=== PATIENT | female | born 1975 | race Caucasian/White ===

== ENCOUNTER 2018-03-25 04:24 | Observation (INO) | payer SELFPAY ==
[2018-03-25] MEDS ORDERED: Nitroglycerin 0.4 MG TAB (25 Tab Bottle) ONE (05:14)
[2018-03-25] MEDS ORDERED: Aspirin 325 MG TAB ONE (05:14)
[2018-03-25 05:44] LABS: CKMB 0.9 ng/mL (0-6.6); Troponin I Less than 0.010 ng/mL (< 0.028)
[2018-03-25 06:43] LABS: #Basophils 0.1 thou/uL (0.0-0.2); #Eosinphils 0.2 thou/uL (0.0-0.7); #Lymphocytes 1.9 thou/uL (1.20-3.40); #Monocytes 0.8 thou/uL (0.11-0.59); #Neutrophils 2.7 thou/uL (1.40-6.50); %Basophils 0.9 % (0.0-1.0); %Eosinophils 3.5 % (0.0-10.0); %Lymphocytes 33.8 % (21.0-51.0); %Monocytes 14.4 % (0.0-10.0); %Neutrophils 47.5 % (42.0-75.0); Hemoglobin 14.1 g/dL (12.0-16.0); Mean Corpuscular HGB CONC 34.4 g/dL (32.0-36.0); Mean Corpuscular Hemoglobin 28.7 pg (27.0-31.0); Mean Corpuscular Volume 83.6 fl (81.0-99.0); Platelet Count 268 thou/uL (130-400); RBC Distribution Width 11.9 % (11.5-14.5); White Blood Cell (WBC) Count 5.7 thou/uL (4.8-10.8)
[2018-03-25 07:01] LABS: ALT (SGPT) 17 U/L (8-55); AST (SGOT) 20 U/L (5-34); Albumin 4.5 g/dL (3.5-5.0); Alkaline Phosphatase 77 U/L (40-150); Anion Gap 15 mmol/L (10-20); BUN (Urea Nitrogen) 12 mg/dL (7.0-18.7); Bilirubin, Total 0.5 mg/dL (0.2-1.2); Calc. Creatinine Clearance 0 mL/min (70-130); Calcium 10.1 mg/dL (7.8-10.44); Carbon Dioxide 24 mmol/L (22-29); Chloride 103 mmol/L (98-107); Estimated GFR-MDRD 74; Globulin 3.3 g/dL (2.4-3.5); Glucose 96 mg/dL (70-105); Potassium 3.5 mmol/L (3.5-5.1); Protein, Total 7.8 g/dL (6.0-8.3); Sodium 138 mmol/L (136-145)
--- NOTE | 2018-03-25 07:42 | RAD ---
RADIOGRAPH CHEST 1 VIEW: HISTORY: A 42-year-old female with chest pain. FINDINGS: There are no air space densities, pulmonary edema, pneumothorax, or cardiomegaly. The lateral costop hrenic angles are sharp. IMPRESSION: No acute cardiopulmonary findings. jn [] POS: [facility]
[2018-03-25] MEDS ORDERED: Acetaminophen 650 MG Suppository PR PRN (09:19)
[2018-03-25] MEDS ORDERED: Nitroglycerin 0.4 MG TAB (25 Tab Bottle) PO PRN (09:19)
[2018-03-25] MEDS ORDERED: Acetaminophen 325 MG TAB PO PRN (09:19)
--- NOTE | 2018-03-25 09:38 | CT ---
PRELIMINARY REPORT/[facility]/EMERGENTY AFTER-HOURS PROCEDURE CT Head Without Intravenous Contrast CLINICAL HISTORY: 42 years old, female; Signs and symptoms; Weakness, facial; Patient HX: Er2. Numbne ss, to the left upper extremity, arm and face. This all started wednesday night when i would have this c hest pain and the my arm would be numb. " pt is very anxious and shaking at bedside TECHNIQUE: Axial computed tomography images of the head/brain without intravenous contrast. COMPARISON: No relevant prior studies available. FINDINGS: Brain: No acute attenuation abnormalities. No intracranial hemorrhage. Ventricles: No hydrocephalus. No midline shift. Bones/joints: No acute findings. Soft tissues: Unremarkable. Sinuses: Unremarkable as visualized. No air-fluid levels. Mastoid air cells: Unremarkable as visualized. IMPRESSION: No acute intracranial abnormality. Thank you for allowing us to participate in the care of your patient. Dictated and Authenticated by: Wild Joy MD 03/25/2018 6:36 AM Central Time ([place] & [place]) FINAL REPORT EMERGENCY AFTER HOURS STUDY CT BRAIN NONCONTRAST: HISTORY: A 42-year-old female with facial weakness and hypesthesia (numbness) of left upper extremity and face . FINDINGS: There is no midline shift or any other mass effect. There is no evidence of acute intracranial hemor rhage, large cortical infarct, obstructive hydrocephalus, or extraaxial fluid collection. The calvar ium is intact. This report agrees with preliminary report by [facility]. IMPRESSION: No acute intracranial findings. erika [] POS: [facility]
[2018-03-25 09:48] LABS: BHCG - Serum Negative (NEGATIVE); Pregs Control Background? CLEAR/WHITE (CLR/WHITE); Pregs Control Bar Appear? YES (CONTROL BAR)
[2018-03-25 09:57] VITALS: BMI 27.7
[2018-03-25] MEDS ORDERED: Regadenoson 0.4 MG/5 ML SYRINGE ONE (10:01)
[2018-03-25 10:30] LABS: Troponin I Less than 0.010 ng/mL (< 0.028)
--- NOTE | 2018-03-25 12:09 | HP ---
PRIMARY CARE PHYSICIAN: [facility]. CHIEF COMPLAINT: Chest pain. HISTORY OF PRESENT ILLNESS: Ms. Alves is a pleasant 42-year-old lady who was seen at [facility] on 03/25/2018. She reports that over the last 5 days, she has had sharp pain over the left inner thigh, accompanied by tightness in her chest and numbness in both arms and legs. She reports that the pain is usually o n the left side, but most of the right side of the chest. She describes it as a sensation of tightne ss, nonradiating, on and off, nonexertional, nonpleuritic, accompanied by nausea. She also reports o ccasional numbness in face and lips. She denies any fevers or chills. She denies any abdominal pain . She came to the emergency room because of ongoing chest discomfort. REVIEW OF SYSTEMS: The following complete review of systems was negative, unless otherwise mentioned in the HPI or below: Constitutional: Weight loss or gain, ability to conduct usual activities. Skin: Rash, itching. Eyes: Double vision, pain. ENT/Mouth: Nose bleeding, neck stiffness, pain, tenderness. Cardiovascular: Palpitations, dyspnea on exertion, orthopnea. Respiratory: Shortness of breath, wheezing, cough, hemoptysis, fever or night sweats. Gastrointestinal: Poor appetite, abdominal pain, heartburn, nausea, vomiting, constipation, or diarr hea. Genitourinary: Urgency, frequency, dysuria, nocturia. Musculoskeletal: Pain, swelling. Neurologic/Psychiatric: Anxiety, depression. Allergy/Immunologic: Skin rash, bleeding tendency. PAST MEDICAL HISTORY: Hypothyroidism. PAST SURGICAL HISTORY: Breast augmentation and section x2. SOCIAL HISTORY: The patient denies tobacco use, alcohol use or recreational drug use. FAMILY HISTORY: She denies any family history of coronary artery disease. ALLERGIES: No known drug allergies. CURRENT MEDICATION: Levothyroxine 75 mcg daily. PHYSICAL EXAMINATION: GENERAL: On examination, Ms. Alves is awake and alert, not in acute distress. VITAL SIGNS: Blood pressure is 130/77, pulse is 49, she is breathing at rate of 16, and saturating 1 00% on room air. She is afebrile. EYES: No scleral icterus. No conjunctival pallor. ENT: Moist mucosal membranes, no oropharyngeal erythema or exudates. NECK: Supple, nontender, normal range of movement. Trachea is midline. RESPIRATORY: Accessory muscles of breathing are not active. Chest wall movements are symmetric bila terally. LUNGS: Clear to auscultation without wheeze, rhonchi or crepitations. CARDIOVASCULAR: S1 and S2 are heard, bradycardic and regular. LUNGS: Peripheral pulses palpable. No carotid bruit, no pericardial rub. ABDOMEN: Soft, nontender, bowel sounds heard, no hepatomegaly, no splenomegaly. NEUROLOGIC: Cranial nerves II-XII intact. No focal motor or sensory deficits. Cerebellar exam is u nremarkable. Deep tendon reflexes are 2+. Plantar reflexes downgoing bilaterally. MUSCULOSKELETAL: Power is 5/5 in all 4 extremities. LYMPHATIC: No cervical lymphadenopathy. SKIN: No rashes or subcutaneous nodules. PSYCHIATRIC: Normal mood, normal affect. The patient is oriented to person, place, and time. IMAGING DATA AND LABORATORY DATA: Ms. Alves' labs and investigations were reviewed. I reviewed he r electrocardiogram, which shows normal sinus rhythm, no ST changes to suggest an acute coronary synd lupe. I also reviewed her chest x-ray, which does not show any pulmonary infiltrates. She also had noncontrast CT scan of the brain, which did not show any acute intracranial abnormality. She has an unremarkable CBC, D-dimer less than 0.27, normal comprehensive metabolic profile, troponin I that is negative x2, normal TSH and a negative serum test. ASSESSMENT AND PLAN: Ms. Alves is a pleasant 42-year-old lady who was seen at [facility] on 03/25/2018. Her problem list includes: 1. Chest pain: Ms. Alves will be admitted to the hospital on regular senior care provider. Stress test is b eing requested. Further management depending on results of the stress test. 2. Bradycardia: She has a normal TSH. If bradycardia continues, she may need workup as outpatient. 3. Hypothyroidism: Continue levothyroxine, stable. 4. Paresthesias: Etiology unclear. We will likely need workup as outpatient. Many thanks for allowing me to participate in your patient's care. Please feel free to contact me wi th any questions or concerns. LEVEL OF RISK: High. LEVEL OF COMPLEXITY: High.
[2018-03-25 15:39] VITALS: BP 136/87; TEMP 97.9
--- NOTE | 2018-03-25 16:39 | NM ---
RADIONUCLIDE STRESS AND REST MYOCARDIAL PERFUSION SCAN WITH CT ATTENUATION CORRECTION AND SPECT IMAGI NG LEFT VENTRICULAR WALL MOTION EVALUATION AND EJECTION FRACTION. 03/25/18 HISTORY: Chest pain. FINDINGS: Lexiscan protocol was used. There is homogeneous uptake of radiotracer throughout the left ventricula r myocardium. No focal perfusion defect or reversibility. QGS analysis of gated SPECT images shows no focal wall motion abnormalities. Left ventricular ejectio n fraction is calculated at 74%. IMPRESSION: Normal myocardial perfusion scan. Normal LVEF. POS: [facility]
--- NOTE | 2018-03-25 22:01 | DIS ---
PRIMARY CARE PROVIDER: [facility]. DATE OF ADMISSION: 03/25/2018 DATE OF DISCHARGE: 03/25/2018 DISCHARGE DIAGNOSIS: Chest pain, not yet diagnosed. HOSPITAL COURSE: Ms. Alves is a pleasant 42-year-old lady who was admitted to [facility] on 03/25/2018 for chest pain as well as paresthesias. She had a nuclear stress test, w hich was normal. Left ventricle ejection fraction was 74%. She had a normal TSH. She did have occa sional bradycardia, she is advised to follow up with her primary care provider for the same. Her chest pain resolved. She also had a normal D-dimer during this hospitalization. Many thanks for allowing me to participate in your patient's care. Please feel free to contact me wi th any questions or concerns. No change was made to her preadmission home medications. DISCHARGE DESTINATION: Home.
[2018-03-26] MEDS ORDERED: Enoxaparin Sodium 40 MG/0.4 ML SYRINGE SC SCH (09:00)
== END 2018-03-25 18:27 | disposition home or self-care (01) ==
LOC: ERS 04:24 → 2SE 08:33
PROVIDERS: ADMIT Family Medicine; ATTEND Family Medicine
DX: R07.9 Chest pain, unspecified (principal); R20.2 Paresthesia of skin; R00.1 Bradycardia, unspecified; E03.9 Hypothyroidism, unspecified; Z79.899 Other long term (current) drug therapy; Z98.890 Other specified postprocedural states
CPT/HCPCS: 36415; 70450; 71045; 78452; 80053; 82553; 84443; 84484; 84703; 85025; 85379; 93005; 93017; 94760; 96360; A9500; G0378; J2785

== ENCOUNTER 2018-05-17 06:29 | Emergency (ER) | payer SELFPAY ==
[2018-05-17 06:57] LABS: #Basophils 0.1 thou/uL (0.0-0.2); #Eosinphils 0.1 thou/uL (0.0-0.7); #Lymphocytes 1.1 thou/uL (1.20-3.40); #Monocytes 0.5 thou/uL (0.11-0.59); #Neutrophils 2.3 thou/uL (1.40-6.50); %Basophils 1.3 % (0.0-1.0); %Eosinophils 2.8 % (0.0-10.0); %Lymphocytes 27.1 % (21.0-51.0); %Monocytes 12.7 % (0.0-10.0); %Neutrophils 56.1 % (42.0-75.0); Mean Corpuscular Volume 82.7 fl (81.0-99.0); Mean Platelet Volume 6.5 fL (7.4-10.4); Platelet Count 253 thou/uL (130-400); RBC Distribution Width 11.8 % (11.5-14.5); Red Blood Cell (RBC) Count 4.82 mill/uL (4.20-5.40); White Blood Cell (WBC) Count 4.1 thou/uL (4.8-10.8)
[2018-05-17 07:22] LABS: Troponin I Less than 0.010 ng/mL (< 0.028)
[2018-05-17 07:24] LABS: ALT (SGPT) 12 U/L (8-55); AST (SGOT) 19 U/L (5-34); Albumin 4.4 g/dL (3.5-5.0); Alkaline Phosphatase 72 U/L (40-150); Anion Gap 16 mmol/L (10-20); BUN (Urea Nitrogen) 15 mg/dL (7.0-18.7); Bilirubin, Total 0.4 mg/dL (0.2-1.2); CK (CPK) 131 U/L (29-168); Calc. Creatinine Clearance 0 mL/min (70-130); Calcium 10.1 mg/dL (7.8-10.44); Carbon Dioxide 21 mmol/L (22-29); Chloride 103 mmol/L (98-107); Estimated GFR-MDRD 73; Globulin 3.3 g/dL (2.4-3.5); Glucose 117 mg/dL (70-105); Potassium 3.9 mmol/L (3.5-5.1); Protein, Total 7.7 g/dL (6.0-8.3); Sodium 136 mmol/L (136-145)
--- NOTE | 2018-05-17 07:41 | RAD ---
FRONTAL RADIOGRAPH CHEST: DATE: 05/17/18. COMPARISON: 03/25/18. HISTORY: Chest pain. FINDINGS: Heart and mediastinal contours are stable. No pneumothorax, pleural fluid, focal consolidation, or a lveolar edema. IMPRESSION: No acute findings. POS: [facility]
--- NOTE | 2018-05-17 09:29 | CT ---
NONCONTRAST CT BRAIN: INDICATIONS: Altered mental status with chest pain, nausea, vomiting, and diarrhea. COMPARISON: Prior exam dated 03/25/2018. FINDINGS: No acute infarct, hemorrhage, or hydrocephalus is present. The septum pellucidum and third ventricle are midline. No acute infarct, hemorrhage, or hydrocephalus is present. IMPRESSION: No acute intracranial abnormalities. POS: [facility]
[2018-05-17 09:33] LABS: BHCG - Serum Negative (NEGATIVE)
[2018-05-17 09:34] LABS: Pregs Control Background? CLEAR/WHITE (CLR/WHITE); Pregs Control Bar Appear? YES (CONTROL BAR)
--- NOTE | 2018-05-17 10:33 | CT ---
CT CHEST WITH IV CONTRAST AND 3D POST PROCESSING: CT ABDOMEN WITH IV CONTRAST AND 3D POST PROCESSING: HISTORY: Chest pain. FINDINGS: The thoracoabdominal aorta demonstrates normal caliber and good contrast opacification without aneury sm or dissection. There is good flow in the celiac artery, the SMA, the JOHANNA, and the renal arteries. The central pulmonary arteries are well opacified without filling defects to suggest central pulmonar y embolism. No pleural or pericardial effusions are seen. No pneumothoraces, focal areas of consoli dation, or lung masses are identified. There are bilateral breast implants. The solid organs are suboptimally evaluated due to imaging during the arterial phase of contrast admi nistration. No calcified gallstones are seen. No free air or free fluid is noted in the abdomen. N o acute osseous abnormalities are seen. IMPRESSION: No evidence of aortic dissection. POS: [facility]
[2018-05-17 11:48] LABS: Troponin I Less than 0.010 ng/mL (< 0.028)
== END 2018-05-17 12:33 | disposition home or self-care (01) ==
LOC: ERS 06:29
DX: R07.89 Other chest pain (principal); R11.2 Nausea with vomiting, unspecified; R19.7 Diarrhea, unspecified; E03.9 Hypothyroidism, unspecified; Z79.899 Other long term (current) drug therapy
CPT/HCPCS: 36415; 70450; 71045; 71275; 80053; 82550; 82553; 84484; 84703; 85025; 93005; 96360

== ENCOUNTER 2022-11-16 09:13 | Emergency (ER) | payer SELFPAY ==
[2022-11-16] MEDS ORDERED: Morphine 4 MG/ML VIAL ONE (09:38)
[2022-11-16] MEDS ORDERED: Ondansetron PF 4 MG/2 ML Vial ONE (09:38)
[2022-11-16 09:45] LABS: #Basophils 0.1 thou/uL (0.0-0.2); #Lymphocytes 0.9 thou/uL (1.20-3.40); #Monocytes 0.7 thou/uL (0.11-0.59); #Neutrophils 11.3 thou/uL (1.40-6.50); %Basophils 0.4 % (0.0-1.0); %Eosinophils 0.3 % (0.0-10.0); %Lymphocytes 6.7 % (21.0-51.0); %Neutrophils 87.6 % (42.0-75.0); Hemoglobin 14.1 g/dL (12.0-16.0); Mean Corpuscular HGB CONC 33.2 g/dL (32.0-36.0); Mean Corpuscular Hemoglobin 28.1 pg (27.0-31.0); Mean Corpuscular Volume 84.9 fl (78.0-98.0); Mean Platelet Volume 6.7 fL (7.4-10.4); Platelet Count 341 10x3/uL (130-400); RBC Distribution Width 11.7 % (11.5-14.5); Red Blood Cell (RBC) Count 4.99 mill/uL (4.20-5.40); White Blood Cell (WBC) Count 12.9 10x3/uL (4.8-10.8)
[2022-11-16 10:03] LABS: BHCG - Serum Negative (NEGATIVE); Pregs Control Background? CLEAR/WHITE (CLR/WHITE); Pregs Control Bar Appear? YES (CONTROL BAR)
[2022-11-16 10:08] LABS: ALT (SGPT) 19 U/L (8-55); AST (SGOT) 33 U/L (5-34); Albumin 4.4 g/dL (3.5-5.0); Alkaline Phosphatase 82 U/L (40-110); Anion Gap 16 mmol/L (10-20); BUN (Urea Nitrogen) 11 mg/dL (7.0-18.7); Bilirubin, Total 0.5 mg/dL (0.2-1.2); Calc. Creatinine Clearance 0 mL/min (70-130); Calcium 10.1 mg/dL (7.8-10.44); Carbon Dioxide 23 mmol/L (22-29); Chloride 99 mmol/L (98-107); Estimated GFR 86; Globulin 3.7 g/dL (2.4-3.5); Glucose 128 mg/dL (70-105); Lipase 14 U/L (8-78); Potassium 4.9 mmol/L (3.5-5.1); Protein, Total 8.1 g/dL (6.0-8.3); Sodium 133 mmol/L (136-145)
[2022-11-16] MEDS ORDERED: Ketorolac Tromethamine 30 MG/ML VIAL ONE (11:13)
== END 2022-11-16 12:25 | disposition home or self-care (01) ==
LOC: ERS 09:13
DX: K80.20 Calculus of gallbladder without cholecystitis without obstruction (principal); E03.9 Hypothyroidism, unspecified
CPT/HCPCS: 71045; 76705; 80053; 83690; 84484; 84703; 85025; 93005; 94760; 96374; 96375; J1885; J2270; J2405